=== PATIENT | male | born 1950 | race Caucasian/White ===

== ENCOUNTER 2016-11-09 00:11 | Emergency (ER) | payer MEDICARE, BC ==
--- NOTE | 2016-11-09 00:41 | EDM.PDOC ---
ED HPI GENERAL MEDICAL PROBLEM - General Chief Complaint: Cardiovascular Problem Stated Complaint: high blood pressure Time Seen by Provider: 11/09/16 00:31 - History of Present Illness INITIAL COMMENTS - FREE TEXT/NARRATIVE: 66-year-old male presents emergency room with elevated blood pressure. He has significant history of recent CABG on 10 October. Postoperatively his routine medications were decreased his Cozaar was decreased from 100 mg a day to 50 mg a day and his metoprolol was decreased from 25 mg twice a day to 12.5 mg twice a day. Patient spends his stack in [place]. This is where he had his bypass surgery done. After coming back up a few days ago he noticed his blood pressure elevating to more alarming levels. On his own he increased his metoprolol back to 25 mg twice a day. This evening his blood pressure was noted to be 183/113. The patient does have some chest wall discomfort this is no worse than normal he does not have any associated shortness of breath he has some lower extremity edema but this is getting better over time. His postoperative course was complicated with the development of atrial fibrillation he was treated with 16 days of amiodarone. He was not anticoagulated. He is taking Plavix and aspirin. The patient has been much more active over the last week or so. He has a 6 pound lifting restriction and since he's been back to his [place] home he' s probably been lifting more than he should. Past medical history significant for hypertension atherosclerotic cardiovascular disease and hyperlipidemia. Chest Pain Score (Numeric/FACES): 7 - Related Data Allergies Allergy/AdvReac Type Severity Reaction Status Date / Time No Known Allergies Allergy Verified 11/09/16 00:17 Home Meds: Home Meds Ascorbate Calcium [Vitamin C] 500 mg PO DAILY 11/09/16 [History] Aspirin 81 mg PO DAILY 11/09/16 [History] Clopidogrel [Plavix] 75 mg PO DAILY 11/09/16 [History] Losartan/Hydrochlorothiazide [Losartan-HCTZ 50-12.5 MG] 1 tab PO DAILY 11/09/16 [History] Metoprolol Tartrate 25 mg PO BID 11/09/16 [History] Pravastatin Sodium 80 mg PO DAILY 11/09/16 [History] Tamsulosin [Flomax] 0.4 mg PO DAILY 11/09/16 [History] Past Medical History HEENT History: Reports: Impaired Vision Other HEENT History: Wears glasses Cardiovascular History: Reports: Afib, Bypass, High Cholesterol, Hypertension, [place] Respiratory History: Reports: Sleep Apnea Genitourinary History: Reports: Renal Calculus Neurological History: Reports: TIA Endocrine/Metabolic History: Reports: Diabetes, Type II Oncologic (Cancer) History: Reports: Prostate - Past Surgical History GI Surgical History: Reports: Cholecystectomy Social & Family History - Tobacco Use Smoking Status *Q: Never Smoker - Recreational Drug Use Recreational Drug Use: No ED ROS GENERAL - Review of Systems Review Of Systems: See Below Constitutional: Reports: No Symptoms HEENT: Reports: No Symptoms Respiratory: Reports: No Symptoms Cardiovascular: Reports: No Symptoms Endocrine: Reports: No Symptoms GI/Abdominal: Reports: No Symptoms : Reports: No Symptoms Neurological: Reports: No Symptoms Psychiatric: Reports: No Symptoms ED EXAM, GENERAL - Physical Exam Exam: See Below Exam Limited By: No Limitations General Appearance: Alert, No Apparent Distress Respiratory/Chest: No Respiratory Distress, Lungs Clear, Normal Breath Sounds Cardiovascular: Regular Rate, Rhythm, No Edema, No Murmur GI/Abdominal: Normal Bowel Sounds, Soft, Non-Tender Back Exam: Normal Inspection. No: CVA Tenderness (L), CVA Tenderness (R) Extremities: Other (Mild pitting edema right worse than left) EKG INTERPRETATION EKG Date: 11/09/16 Rhythm: NSR [place]: normal P-wave: present QRS: other (Borderline intraventricular conduction delay) ST-T: normal QT: normal Comparison: NA - no prior EKG EKG Interpretation Comments: Order lead EKG Course - Vital Signs Last Recorded V/S: Last Vital Signs Temp 36.4 C 11/09/16 00:17 Pulse 87 11/09/16 00:17 Resp 18 11/09/16 00:17 BP 159/108 H 11/09/16 01:09 Pulse Ox 98 11/09/16 00:17 - Orders/Labs/Meds Orders: Active Orders 24 hr Category Date Time Status EKG Documentation Completion [RC] STAT Care 11/09/16 00:53 Active Chest 1V Frontal [CR] Stat Exams 11/09/16 00:51 Taken CBC WITH MANUAL DIFF [HEME] Stat Lab 11/09/16 01:02 Results COMPREHENSIVE METABOLIC PN,CMP [CHEM] Stat Lab 11/09/16 01:02 Received INR,PT,PROTHROMBIN TIME [COAG] Stat Lab 11/09/16 01:02 Received PTT,PARTIAL THROMBOPLSTIN TIME [COAG] Stat Lab 11/09/16 01:02 Received TROPONIN I [CHEM] Stat Lab 11/09/16 01:02 Received Labs: Laboratory Tests 11/09/16 Range/Units 01:02 WBC 4.98 (4.23-9.07) K/mm3 RBC 4.06 L (4.63-6.08) M/mm3 Hgb 12.3 L (13.7-17.5) gm/L Hct 38.3 L (40.1-51.0) % MCV 94.3 H (79.0-92.2) fl MCH 30.3 (25.7-32.2) pg MCHC 32.1 L (32.2-35.5) g/dl RDW Std Deviation 52.8 H (35.1-43.9) fL Plt Count 169 (163-337) K/mm3 MPV 9.9 (9.4-12.3) fl Meds: Medications Discontinued Medications Generic Name Dose Route Start Last Admin Trade Name Olga PRN Reason Stop Dose Admin Losartan Potassium 50 mg 11/09/16 00:58 11/09/16 01:09 Cozaar PO 11/09/16 00:59 50 mg ONETIME ONE Administration - Re-Assessments/Exams Free Text/Narrative Re-Assessment/Exam: 11/09/16 01:31 Labs pending EKG shows no ischemia. Chest x-ray rotated no acute cardiopulmonary changes he's somewhat rotated but nonetheless probably has some degree of cardiomegaly 11/09/16 02:06 Labs nondiagnostic his creatinine is up a little bit he is mildly anemic which would be expected given his recent surgery. The patient was given 50 mg of losartan here our strategy for his blood pressures can be to increase his losartan back to what was his usual daily dose 100 mg daily however working he continue 50 mg twice daily. Departure - Departure Time of Disposition: 02:07 Disposition: Home, Self-Care 01 Clinical Impression: Hypertension Forms: ED Department Discharge Additional Instructions: Return to the emergency room with any questions or problems. Followup with Dr. Carrasco in one week for blood pressure check. Proceed with cardiac rehabilitation as scheduled. Continue your current medications as before however we will increase her losartan to 50 mg twice daily. - My Orders Last 24 Hours: My Active Orders 11/09/16 00:51 Chest 1V Frontal [CR] Stat 11/09/16 00:53 EKG Documentation Completion [RC] STAT 11/09/16 01:02 CBC WITH MANUAL DIFF [HEME] Stat COMPREHENSIVE METABOLIC PN,CMP [CHEM] Stat INR,PT,PROTHROMBIN TIME [COAG] Stat PTT,PARTIAL THROMBOPLSTIN TIME [COAG] Stat TROPONIN I [CHEM] Stat - Assessment/Plan Last 24 Hours: My Active Orders 11/09/16 00:51 Chest 1V Frontal [CR] Stat 11/09/16 00:53 EKG Documentation Completion [RC] STAT 11/09/16 01:02 CBC WITH MANUAL DIFF [HEME] Stat COMPREHENSIVE METABOLIC PN,CMP [CHEM] Stat INR,PT,PROTHROMBIN TIME [COAG] Stat PTT,PARTIAL THROMBOPLSTIN TIME [COAG] Stat TROPONIN I [CHEM] Stat
[2016-11-09] MEDS ORDERED: Losartan 25 MG Tab PO ONE (00:58)
[2016-11-09 01:10] VITALS: BP 159/108
--- NOTE | 2016-11-09 06:51 | CR ---
Chest: Portable view of the chest was obtained. Comparison: Previous chest x-ray of 05/30/12. Heart is mildly enlarged. Tortuous thoracic aorta is seen. Sternotomy wires are seen which are an interval change from prior exam. Lungs are clear. Bony structures are grossly intact. Impression: 1. Mild cardiomegaly and interval sternotomy from prior exam. 2. Nothing acute is otherwise seen on portable chest x-ray. Diagnostic code #2
== END 2016-11-09 02:17 | disposition home or self-care (01) ==
LOC: JD.ED 00:11
DX: I10 Essential (primary) hypertension (principal); I25.2 Old myocardial infarction; E78.00 Pure hypercholesterolemia, unspecified; E11.9 Type 2 diabetes mellitus without complications; Z86.73 Personal history of transient ischemic attack (TIA), and cerebral infarction without residual deficits; Z85.46 Personal history of malignant neoplasm of prostate; Z79.82 Long term (current) use of aspirin; Z79.02 Long term (current) use of antithrombotics/antiplatelets; Z79.899 Other long term (current) drug therapy; Z90.49 Acquired absence of other specified parts of digestive tract
CPT/HCPCS: 36415; 71010; 80053; 84484; 85025; 85610; 85730; 93005; 99284; A9270; 99283

== ENCOUNTER 2019-10-11 09:58 | Emergency (ER) | payer MEDICARE, BC ==
[2019-10-11 10:10] VITALS: BP 154/90; PULSE 74
[2019-10-11] MEDS ORDERED: Sodium Chloride 0.9% 10 ML Syringe FLUSH PRN (10:15)
[2019-10-11] MEDS ORDERED: cefTRIAXone 2 GM in Sodium Chloride 0.9% 100 ML IV ONE (10:16)
--- NOTE | 2019-10-11 11:20 | EDM.PDOC ---
ED HPI GENERAL MEDICAL PROBLEM - General Chief Complaint: Skin Complaint Stated Complaint: TICK BITE GETTING WORSE Time Seen by Provider: 10/11/19 10:08 Source of Information: Reports: Patient History Limitations: Reports: No Limitations - History of Present Illness INITIAL COMMENTS - FREE TEXT/NARRATIVE: The patient presents with left sided abdominal infection. He had a tick on him on Monday and he removed the tick and then he had redness. He went to the walk in clinic yesterday and was put on doxycycline. He took 3 doses but the redness has extended past the margins that the nurse practitioner marked yesterday. He has no fever, chills, cough, congestion, runny nose, chest pain, or shortness of breath. Onset: Gradual Duration: Day(s): Location: Reports: Abdomen Quality: Reports: Sharp Severity: Mild Improves with: Reports: None Worsens with: Reports: None Associated Symptoms: Reports: No Other Symptoms - Related Data Allergies Allergy/AdvReac Type Severity Reaction Status Date / Time No Known Allergies Allergy Verified 10/11/19 10:10 Home Meds: Home Meds Ascorbate Calcium [Vitamin C] 500 mg PO DAILY 11/09/16 [History] Aspirin 81 mg PO DAILY 11/09/16 [History] Losartan/Hydrochlorothiazide [Losartan-HCTZ 50-12.5 MG] 1 tab PO DAILY 11/09/16 [History] Metoprolol Tartrate 25 mg PO BID 11/09/16 [History] Pravastatin Sodium 80 mg PO DAILY 11/09/16 [History] Tamsulosin [Flomax] 0.4 mg PO DAILY 11/09/16 [History] Doxycycline [Doxycycline Hyclate] 100 mg PO BID 10/11/19 [History] Past Medical History HEENT History: Reports: Impaired Vision Other HEENT History: Wears glasses Cardiovascular History: Reports: Afib, Bypass, High Cholesterol, Hypertension, [place] Respiratory History: Reports: Sleep Apnea Genitourinary History: Reports: Renal Calculus Neurological History: Reports: TIA Endocrine/Metabolic History: Reports: Diabetes, Type II Oncologic (Cancer) History: Reports: Prostate - Past Surgical History GI Surgical History: Reports: Cholecystectomy Social & Family History - Tobacco Use Smoking Status *Q: Never Smoker - Recreational Drug Use Recreational Drug Use: No ED ROS GENERAL - Review of Systems Review Of Systems: See Below Constitutional: Reports: No Symptoms HEENT: Reports: No Symptoms Respiratory: Reports: No Symptoms Cardiovascular: Reports: No Symptoms Endocrine: Reports: No Symptoms GI/Abdominal: Reports: Other (Redness and swelling to the left abdomen) : Reports: No Symptoms Musculoskeletal: Reports: No Symptoms Neurological: Reports: No Symptoms ED EXAM, SKIN/RASH Exam: See Below Exam Limited By: No Limitations General Appearance: Alert, No Apparent Distress Ears: Normal External Exam Nose: Normal Inspection Head: Atraumatic, Normocephalic Neck: Normal Inspection Respiratory/Chest: No Respiratory Distress GI/Abdominal: Soft, Other (Erythema and edema to the left lower abdomen. No drainage is noted.) Course - Vital Signs Last Recorded V/S: Last Vital Signs Temp 97.9 F 10/11/19 10:07 Pulse 74 10/11/19 10:07 Resp 15 10/11/19 10:07 BP 154/90 H 10/11/19 10:07 Pulse Ox 95 10/11/19 10:07 - Orders/Labs/Meds Orders: Active Orders 24 hr Category Date Time Status Cardiac Monitoring [RC] . DIRECTED Care 10/11/19 10:15 Active Peripheral IV Care [RC] . DIRECTED Care 10/11/19 10:15 Active CULTURE BLOOD [BC] Stat Lab 10/11/19 10:35 Received CULTURE BLOOD [BC] Stat Lab 10/11/19 10:45 Received Sodium Chloride 0.9% [Saline Flush] Med 10/11/19 10:15 Active 10 ml FLUSH ASDIRECTED PRN Blood Culture x2 Reflex Set [OM.PC] Stat Oth 10/11/19 10:16 Ordered Peripheral IV Insertion Adult [OM.PC] Stat Oth 10/11/19 10:15 Ordered Medication Orders Sodium Chloride (Saline Flush) 10 ml FLUSH ASDIRECTED PRN PRN Reason: Keep Vein Open Last Admin: 10/11/19 10:50 Dose: 10 ml Labs: Laboratory Tests 10/11/19 10/11/19 Range/Units 10:35 10:35 WBC 5.48 (4.23-9.07) K/mm3 RBC 5.29 (4.63-6.08) M/mm3 Hgb 16.4 D (13.7-17.5) gm/dl Hct 49.5 (40.1-51.0) % MCV 93.6 H (79.0-92.2) fl MCH 31.0 (25.7-32.2) pg MCHC 33.1 (32.2-35.5) g/dl RDW Std Deviation 48.5 H (35.1-43.9) fL Plt Count 166 (163-337) K/mm3 MPV 10.5 (9.4-12.3) fl Neut % (Auto) 64.4 (34.0-67.9) % Lymph % (Auto) 19.3 L (21.8-53.1) % [place] % (Auto) 9.7 (5.3-12.2) % Eos % (Auto) 5.7 (0.8-7.0) Baso % (Auto) 0.5 (0.1-1.2) % Neut # (Auto) 3.53 (1.78-5.38) K/mm3 Lymph # (Auto) 1.06 L (1.32-3.57) K/mm3 [place] # (Auto) 0.53 (0.30-0.82) K/mm3 Eos # (Auto) 0.31 (0.04-0.54) K/mm3 Baso # (Auto) 0.03 (0.01-0.08) K/mm3 Sodium 140 (136-145) mEq/L Potassium 3.9 (3.5-5.1) mEq/L Chloride 104 (98-107) mEq/L Carbon Dioxide 27 (21-32) mEq/L Anion Gap 12.9 (5-15) BUN 20 H (7-18) mg/dL Creatinine 1.2 (0.7-1.3) mg/dL Est Cr Clr Drug Dosing 61.01 mL/min Estimated GFR (MDRD) 60 (>60) mL/min BUN/Creatinine Ratio 16.7 (14-18) Glucose 110 (80-115) mg/dL Calcium 8.8 (8.5-10.1) mg/dL Total Bilirubin 0.8 (0.2-1.0) mg/dL AST 32 (15-37) U/L ALT 70 H (16-63) U/L Alkaline Phosphatase 64 (46-116) U/L C-Reactive Protein < 0.2 (<1.0) mg/dL Total Protein 6.8 (6.4-8.2) g/dl Albumin 3.8 (3.4-5.0) g/dl Globulin 3.0 gm/dL Albumin/Globulin Ratio 1.3 (1-2) Meds: Medications Generic Name Dose Route Start Last Admin Trade Name Freq PRN Reason Stop Dose Admin Sodium Chloride 10 ml 10/11/19 10:15 10/11/19 10:50 Saline Flush FLUSH 10 ml ASDIRECTED PRN Administration Keep Vein Open Discontinued Medications Generic Name Dose Route Start Last Admin Trade Name Freq PRN Reason Stop Dose Admin Ceftriaxone Sodium 2 gm/ 100 mls @ 200 mls/hr 10/11/19 10:16 10/11/19 10:49 Sodium Chloride IV 10/11/19 10:45 200 mls/hr ONETIME ONE Administration - Re-Assessments/Exams Free Text/Narrative Re-Assessment/Exam: 10/11/19 11:20 I ordered an IV saline lock, rocephin 2 grams IV, labs and blood cultures. His CBC looks good. 10/11/19 11:42 His ALT was a little elevated at 70. His CRP is negative. I will have him come back tomorrow for a shot of rocephin. Departure - Departure Time of Disposition: 11:45 Disposition: Home, Self-Care 01 Condition: Good Clinical Impression: Cellulitis of abdominal wall - Discharge Information *PRESCRIPTION DRUG MONITORING PROGRAM REVIEWED*: Not Applicable *COPY OF PRESCRIPTION DRUG MONITORING REPORT IN PATIENT BILL: Not Applicable Referrals: Bladimir Lozada MD [Primary Care Provider] - 1 Week Forms: ED Department Discharge Additional Instructions: Put warm compresses on the affected area 3 times per day. Take the doxycycline 2 times per day as prescribed. Please return tomorrow for a shot of antibiotic. Sepsis Event Note - Evaluation Sepsis Screening Result: No Definite Risk - Focused Exam Vital Signs: Vital Signs Temp Pulse Resp BP Pulse Ox 10/11/19 10:07 97.9 F 74 15 154/90 H 95 Date Exam was Performed: 10/11/19 Time Exam was Performed: 11:42 - My Orders Last 24 Hours: My Active Orders 10/11/19 10:15 Cardiac Monitoring [RC] . DIRECTED Peripheral IV Care [RC] . DIRECTED Sodium Chloride 0.9% [Saline Flush] 10 ml FLUSH ASDIRECTED PRN Peripheral IV Insertion Adult [OM.PC] Stat 10/11/19 10:16 Blood Culture x2 Reflex Set [OM.PC] Stat 10/11/19 10:35 CULTURE BLOOD [BC] Stat 10/11/19 10:45 CULTURE BLOOD [BC] Stat - Assessment/Plan Last 24 Hours: My Active Orders 10/11/19 10:15 Cardiac Monitoring [RC] . DIRECTED Peripheral IV Care [RC] . DIRECTED Sodium Chloride 0.9% [Saline Flush] 10 ml FLUSH ASDIRECTED PRN Peripheral IV Insertion Adult [OM.PC] Stat 10/11/19 10:16 Blood Culture x2 Reflex Set [OM.PC] Stat 10/11/19 10:35 CULTURE BLOOD [BC] Stat 10/11/19 10:45 CULTURE BLOOD [BC] Stat
== END 2019-10-11 11:54 | disposition home or self-care (01) ==
LOC: JD.ED 09:58
DX: L03.311 Cellulitis of abdominal wall (principal); I48.91 Unspecified atrial fibrillation; E78.00 Pure hypercholesterolemia, unspecified; I10 Essential (primary) hypertension; I25.2 Old myocardial infarction; E11.9 Type 2 diabetes mellitus without complications; Z87.442 Personal history of urinary calculi; Z85.46 Personal history of malignant neoplasm of prostate; Z79.899 Other long term (current) drug therapy; Z79.82 Long term (current) use of aspirin; Z86.73 Personal history of transient ischemic attack (TIA), and cerebral infarction without residual deficits
CPT/HCPCS: 36415; 80053; 85025; 86140; 87040; 96365; 99283; J0696; J7050

== ENCOUNTER 2020-06-24 11:27 | Emergency (ER) | payer MEDICARE, BC ==
[2020-06-24 11:52] VITALS: BP 206/105; PULSE 82
--- NOTE | 2020-06-24 12:19 | EDM.PDOC ---
ED HPI GENERAL MEDICAL PROBLEM - General Chief Complaint: Cardiovascular Problem Stated Complaint: HIGH BP Time Seen by Provider: 06/24/20 11:34 Source of Information: Reports: Patient History Limitations: Reports: No Limitations - History of Present Illness INITIAL COMMENTS - FREE TEXT/NARRATIVE: 70-year-old male presents to the emergency department complaints of high blood pressure. Patient states he has had a headache for 3 weeks. He however reports that he stopped taking his hydrochlorothiazide about a month ago because he was tired of having to void all the time. Patient also notes that his ankles have become more swollen and he has noted a 5 pound weight gain. Denies any chest pain or shortness of breath associated with this. He states he took an extra dose of his metoprolol 25mg at 1030 this morning to lower his blood pressure. Patient's blood pressure at time of assessment is160/95, HR 55. Pt also states that he has not started taking his metformin that was prescribed to him on May.19. Onset: Gradual Upper Headache Pain Score (Numeric/FACES): 7 - Related Data Allergies Allergy/AdvReac Type Severity Reaction Status Date / Time No Known Allergies Allergy Verified 06/24/20 11:37 Home Meds: Home Meds Ascorbate Calcium [Vitamin C] 500 mg PO DAILY 11/09/16 [History] Aspirin 81 mg PO DAILY 11/09/16 [History] Metoprolol Tartrate 25 mg PO BID 11/09/16 [History] Cholecalciferol (Vitamin D3) [Vitamin D3] 5,000 intnl unit PO DAILY 06/24/20 [History] Ezetimibe [Zetia] 10 mg PO BEDTIME 06/24/20 [History] Olmesartan Medoxomil 40 mg PO DAILY 06/24/20 [History] amLODIPine [Norvasc] 5 mg PO DAILY 06/24/20 [History] hydroCHLOROthiazide [Hydrochlorothiazide] 12.5 mg PO DAILY 06/24/20 [History] metFORMIN [Glucophage] 500 mg PO DAILY 06/24/20 [History] Past Medical History HEENT History: Reports: Impaired Vision Other HEENT History: Wears glasses Cardiovascular History: Reports: Afib, Bypass, High Cholesterol, Hypertension, [place] Respiratory History: Reports: Sleep Apnea Other Respiratory History: wears C-PAP. Genitourinary History: Reports: BPH, Pyelonephritis, Renal Calculus Neurological History: Reports: TIA Endocrine/Metabolic History: Reports: Diabetes, Type II Oncologic (Cancer) History: Reports: Prostate Other Oncologic History: SEEDS implants - Infectious Disease History Infectious Disease History: Reports: Chicken Pox, Measles, Mumps - Past Surgical History Cardiovascular Surgical History: Reports: Coronary Artery Bypass, Other (See Below) Other Cardiovascular Surgeries/Procedures: 4 vessel bypass. GI Surgical History: Reports: Cholecystectomy, Colonoscopy Social & Family History - Tobacco Use Tobacco Use Status *Q: Never Tobacco User Second Hand Smoke Exposure: No - Caffeine Use Caffeine Use: Reports: Soda - Recreational Drug Use Recreational Drug Use: No ED ROS GENERAL - Review of Systems Review Of Systems: See Below Constitutional: Reports: Weight Gain (5 pounds in the last month). Denies: Fever, Chills, Diaphoresis HEENT: Reports: No Symptoms Respiratory: Reports: No Symptoms. Denies: Shortness of Breath, Wheezing, Cough Cardiovascular: Reports: Blood Pressure Problem (Hypertension), Edema (Bilateral lower extremities). Denies: Chest Pain, Dyspnea on Exertion, Lightheadedness, Orthopnea, Palpitations, Syncope Endocrine: Reports: No Symptoms GI/Abdominal: Reports: No Symptoms : Reports: No Symptoms Musculoskeletal: Reports: No Symptoms Skin: Reports: No Symptoms Neurological: Reports: No Symptoms Psychiatric: Reports: No Symptoms Hematologic/Lymphatic: Reports: No Symptoms Immunologic: Reports: No Symptoms ED EXAM, GENERAL - Physical Exam Exam: See Below Exam Limited By: No Limitations General Appearance: Alert, WD/WN, No Apparent Distress Eye Exam: Bilateral Eye: PERRL Ears: Hearing Grossly Normal Nose: Normal Inspection Throat/Mouth: Normal Inspection, Normal Voice, No Airway Compromise Head: Atraumatic, Normocephalic Neck: Normal Inspection, Supple, Non-Tender, Full Range of Motion Respiratory/Chest: No Respiratory Distress, Lungs Clear, Normal Breath Sounds, No Accessory Muscle Use, Chest Non-Tender Cardiovascular: Normal Peripheral Pulses, Regular Rate, Rhythm, Systolic Murmur (Grade 2). No: No Edema (3+ pitting edema to the bilateral lower extremities from mid rivas down) Peripheral Pulses: 2+: Radial (L), Radial (R) GI/Abdominal: Normal Bowel Sounds, Soft, Non-Tender, No Distention (Male) Exam: Deferred Rectal (Males) Exam: Deferred Back Exam: Normal Inspection, Full Range of Motion Extremities: Normal Inspection, Normal Range of Motion, Non-Tender, Normal Capillary Refill, Pedal Edema (3+ pitting to the bilateral lower extremities from mid rivas down) Neurological: Alert, Oriented, Normal Cognition Psychiatric: Normal Affect, Normal Mood Skin Exam: Warm, Dry, Intact, Normal Color, No Rash Lymphatic: No Adenopathy #1 Interpretation EKG Date: 06/24/20 Time: 12:25 Rhythm: NSR Rate (Beats/Min): 58 [place]: Normal P-Wave: Present QRS: Normal ST-T: Normal QT: Normal Comparison: NA - No Prior EKG Course - Vital Signs Text/Narrative:: 70-year-old male presents to the emergency department with complaints of high blood pressure and a headache x3 weeks. Patient states he took his blood pressure this morning and it was elevated and then spoke with his daughter and she told him to take an extra dose of his metoprolol 25 mg tab. Patient states he stopped taking his hydrochlorothiazide about a month ago as he was tired of having to run to the bathroom all the time. He notes that he has had about a 5 pound weight gain, increased swelling in his bilateral lower extremities and a headache. He denies any orthopnea, chest pain, shortness of breath, or palpitations. Upon assessment patient's lung sounds are clear bilaterally, he does have a grade 2 systolic murmur noted, abdomen is soft nontender, and he does have 3+ pitting edema to his bilateral lower extremities. At the time of my assessment the patient's blood pressure has now come down to the 160s over 90s and his heart rate is in the 50s so I will not treat his hypertension. I have ordered a portable chest x-ray, EKG, CBC, CMP, troponin, BNP. I reinforced to the patient the need for him to be taking his hydrochlorothiazide daily and the need for him to be taking his Metformin. Last Recorded V/S: Last Vital Signs Temp 98.2 F 06/24/20 11:30 Pulse 82 06/24/20 11:30 Resp 20 06/24/20 11:30 BP 206/105 H 06/24/20 11:30 Pulse Ox 95 06/24/20 11:30 - Orders/Labs/Meds Orders: Active Orders 24 hr Category Date Time Status EKG Documentation Completion [RC] STAT Care 06/24/20 12:03 Active Labs: Laboratory Tests 06/24/20 06/24/20 06/24/20 Range/Units 12:18 12:18 12:18 WBC 5.24 (4.23-9.07) K/mm3 RBC 5.59 (4.63-6.08) M/mm3 Hgb 16.7 (13.7-17.5) gm/dl Hct 49.9 (40.1-51.0) % MCV 89.3 (79.0-92.2) fl MCH 29.9 (25.7-32.2) pg MCHC 33.5 (32.2-35.5) g/dl RDW Std Deviation 44.6 H (35.1-43.9) fL Plt Count 144 L (163-337) K/mm3 MPV 10.9 (9.4-12.3) fl Neut % (Auto) 73.1 H (34.0-67.9) % Lymph % (Auto) 15.6 L (21.8-53.1) % Bland % (Auto) 8.4 (5.3-12.2) % Eos % (Auto) 2.1 (0.8-7.0) Baso % (Auto) 0.4 (0.1-1.2) % Neut # (Auto) 3.83 (1.78-5.38) K/mm3 Lymph # (Auto) 0.82 L (1.32-3.57) K/mm3 Bland # (Auto) 0.44 (0.30-0.82) K/mm3 Eos # (Auto) 0.11 (0.04-0.54) K/mm3 Baso # (Auto) 0.02 (0.01-0.08) K/mm3 Sodium 145 (136-145) mEq/L Potassium 4.6 (3.5-5.1) mEq/L Chloride 105 (98-107) mEq/L Carbon Dioxide 31 (21-32) mEq/L Anion Gap 13.6 (5-15) BUN 15 (7-18) mg/dL Creatinine 1.3 (0.7-1.3) mg/dL Est Cr Clr Drug Dosing 55.51 mL/min Estimated GFR (MDRD) 54 (>60) mL/min BUN/Creatinine Ratio 11.5 L (14-18) Glucose 142 H (83-115) mg/dL Calcium 9.0 (8.5-10.1) mg/dL Magnesium 2.0 (1.8-2.4) mg/dl Total Bilirubin 0.8 (0.2-1.0) mg/dL AST 40 H (15-37) U/L ALT 82 H (16-63) U/L Alkaline Phosphatase 73 (46-116) U/L Troponin I < 0.017 (0.00-0.056) ng/mL NT-Pro-B Natriuret Pep 115 (0-125) pg/mL Total Protein 6.7 (6.4-8.2) g/dl Albumin 3.7 (3.4-5.0) g/dl Globulin 3.0 gm/dL Albumin/Globulin Ratio 1.2 (1-2) - Re-Assessments/Exams Free Text/Narrative Re-Assessment/Exam: 06/24/20 13:57 CBC is essentially unremarkable, CMP reveals sodium 145, potassium 4.6, BUN 15, creatinine 1.3, GFR 54, glucose 142, AST 40, ALT 82, troponin less than 0.017, proBNP 115. Patient has ruled out of having any cardiac events related to the hypertension. He he now states that just before arrival to the emergency department he took his daily dose of hydrochlorothiazide and he has voided 3 times since being in the emergency department and feels better. I am going to discharge him to home with recommendations that he restart his hydrochlorothiazide as previously prescribed and start taking his Metformin as his glucose was elevated in the emergency department. I did discuss this with the patient and his and they are both agreeable to this. Departure - Departure Time of Disposition: 13:45 Disposition: Home, Self-Care 01 Condition: Good Clinical Impression: Noncompliance with medication regimen Instructions: Metformin extended-release tablets, Hypertension, Adult, [id number], Heart Failure, Diagnosis, [id number], Edema, [id number] Referrals: Veda Valdez PA-C [Primary Care Provider] - Forms: ED Department Discharge Additional Instructions: You were seen in the emergency department with complaints of high blood pressure and a headache. It was found that this was due to you not taking your hydrochlorothiazide medication. Your blood pressure did come down while in the emergency department as you stated you had taken an extra dose of your metoprolol prior to arriving the emergency department. Full cardiac work-up was unremarkable. You would need to take your hydrochlorothiazide as prescribed. You also need to be taking your Metformin as prescribed as your blood sugar was elevated in the emergency department. Follow-up with your primary care physician with any further issues. Should your condition worsen or change please return to the emergency department Sepsis Event Note (ED) - Evaluation Sepsis Screening Result: No Definite Risk - Focused Exam Vital Signs: Vital Signs Temp Pulse Resp BP Pulse Ox 06/24/20 11:30 98.2 F 82 20 206/105 H 95 - My Orders Last 24 Hours: My Active Orders 06/24/20 12:03 EKG Documentation Completion [RC] STAT - Assessment/Plan Last 24 Hours: My Active Orders 06/24/20 12:03 EKG Documentation Completion [RC] STAT
--- NOTE | 2020-06-24 12:43 | CR ---
Chest: Portable view of the chest was obtained. Comparison: Prior chest x-ray of 09/25/19. Heart size is normal. Tortuous thoracic aorta is seen. Prior sternotomy is seen. Lungs are clear with no acute parenchymal change. Osseous structures show nothing acute. Impression: 1. Nothing acute is seen on portable chest x-ray. Diagnostic code #1
== END 2020-06-24 14:05 | disposition home or self-care (01) ==
LOC: JD.ED 11:27
DX: I10 Essential (primary) hypertension (principal); I48.91 Unspecified atrial fibrillation; I25.2 Old myocardial infarction; E11.9 Type 2 diabetes mellitus without complications; Z79.84 Long term (current) use of oral hypoglycemic drugs; Z79.82 Long term (current) use of aspirin; Z79.899 Other long term (current) drug therapy; Z86.73 Personal history of transient ischemic attack (TIA), and cerebral infarction without residual deficits; Z95.1 Presence of aortocoronary bypass graft; Z91.14 Patient's other noncompliance with medication regimen
CPT/HCPCS: 36415; 71045; 71045-26; 80053; 83735; 83880; 84484; 85025; 93005; 93010; 99283; 99284-25

== ENCOUNTER 2021-03-19 04:21 | Emergency (ER) | payer MEDICARE, BC ==
[2021-03-19 04:35] VITALS: BP 145/75; PULSE 80
--- NOTE | 2021-03-19 04:42 | EDM.PDOC ---
ED HPI GENERAL MEDICAL PROBLEM - General Chief Complaint: Genitourinary Problem Stated Complaint: UTI Time Seen by Provider: 03/19/21 04:42 - History of Present Illness INITIAL COMMENTS - FREE TEXT/NARRATIVE: Patient arrived to ED by private vehicle He is accompanied by his Onset of symptoms was 1 week ago Describes urinary frequency and burning with urination Past 2 days symptoms have gotten worse Endorses presence of blood in urine States that urination "stops" while he is voiding and feels like his "bladder is going to burst" Denies fever, nausea, vomiting, diarrhea Has prior history of prostate cancer Also has history of kidney stones, previously manifested with flank pain Bladder Pain Score (Numeric/FACES): 5 - Related Data Allergies Allergy/AdvReac Type Severity Reaction Status Date / Time No Known Allergies Allergy Verified 03/19/21 04:35 Home Meds: Home Meds Ascorbate Calcium [Vitamin C] 500 mg PO DAILY 11/09/16 [History] Aspirin 81 mg PO DAILY 11/09/16 [History] Metoprolol Tartrate 25 mg PO BID 11/09/16 [History] Cholecalciferol (Vitamin D3) [Vitamin D3] 5,000 intnl unit PO DAILY 06/24/20 [History] Olmesartan Medoxomil 40 mg PO DAILY 06/24/20 [History] amLODIPine [Norvasc] 5 mg PO DAILY 06/24/20 [History] hydroCHLOROthiazide [Hydrochlorothiazide] 12.5 mg PO DAILY 06/24/20 [History] Pravastatin [Pravachol] 40 mg PO DAILY 03/19/21 [History] cephALEXin [Cephalexin] 500 mg PO Q12H #15 capsule 03/19/21 [Rx] Past Medical History HEENT History: Reports: Impaired Vision Other HEENT History: Wears glasses Cardiovascular History: Reports: Afib, Bypass, High Cholesterol, Hypertension, CT Respiratory History: Reports: Sleep Apnea Other Respiratory History: wears C-PAP. Genitourinary History: Reports: BPH, Pyelonephritis, Renal Calculus Neurological History: Reports: TIA Endocrine/Metabolic History: Reports: Diabetes, Type II Oncologic (Cancer) History: Reports: Prostate Other Oncologic History: SEEDS implants - Infectious Disease History Infectious Disease History: Reports: Chicken Pox, Measles, Mumps - Past Surgical History Cardiovascular Surgical History: Reports: Coronary Artery Bypass, Other (See Below) Other Cardiovascular Surgeries/Procedures: 4 vessel bypass. GI Surgical History: Reports: Cholecystectomy, Colonoscopy Social & Family History - Caffeine Use Caffeine Use: Reports: Soda ED ROS GENERAL - Review of Systems Review Of Systems: See Below Free Text/Narrative/Comment: Constitutional - no fever Eyes - no eye pain; no visual disturbance ENT - no rhinorrhea; no congestion; no epistaxis Cardiovascular - no chest pain Respiratory - no shortness of breath; no cough Gastrointestinal - lower abdominal pain; no nausea; no vomiting; no diarrhea Genitourinary - dysuria; hematuria; urinary frequency Musculoskeletal - no neck pain; no back pain; no extremity injury Neurological - no headache; no speech disturbance; no weakness ED EXAM, GENERAL - Physical Exam Exam: See Below Free Text/Narrative:: Constitutional - awake; alert; no acute distress Head - no facial swelling or weakness Eyes - extra ocular motion intact; conjunctiva normal ENT - no nasal deformity; no epistaxis; normal phonation Neck - no swelling Respiratory - normal respiratory effort; no crackles or wheezing; no stridor Cardiovascular - regular rhythm; normal rate; S1; S2; grade 2/6 systolic murmur GI/Abdomen - normal bowel sounds; soft; mild, lower abdominal tenderness; no rebound; no guarding; no mass Musculoskeletal - grossly normal strength and motion; no swelling or deformity Skin - warm; dry Neurologic - normal speech; no weakness Psychiatric - normal mood and affect; memory and attention normal Course - Vital Signs Text/Narrative:: . Considered etiologies included: Urinary frequency, dysuria, hematuria, urinary retention, kidney stone Symptoms and examination were discussed Investigations were initiated Bladder scan after voiding for urine specimen showed no significant urinary retention Results of urinalysis showed predominantly RBCs, consistent with hemorrhagic cystitis Urine culture was ordered Consideration was discussed for abdominal CT imaging Patient confirmed no pain except with urination, and no flank pain CT imaging was deferred Antibiotic therapy for presumed UTI was initiated with oral cephalexin Ciprofloxacin was avoided due to patient age Trimethoprim/sulfamethoxazole was avoided due risk of hyperkalemia with ARB medication Primary care follow-up was advised Patient was felt to be stable for outpatient follow-up Return precautions were provided Last Recorded V/S: Last Vital Signs Temp 36.9 C 03/19/21 04:32 Pulse 80 03/19/21 04:32 Resp 16 03/19/21 04:32 BP 145/75 H 03/19/21 04:32 Pulse Ox 94 L 10/08/21 04:32 - Orders/Labs/Meds Orders: Active Orders 24 hr Category Date Time Status CULTURE URINE [MREF] Stat Lab 03/19/21 04:38 Received cephALEXin [Keflex] Med 03/19/21 06:24 Once 500 mg PO ONETIME ONE Labs: Laboratory Tests 03/19/21 Range/Units 04:38 Urine Color Brown H (Yellow) Urine Appearance Cloudy H (Clear) Urine pH 5.5 (5.0-8.0) Ur Specific [place] 1.025 (1.005-1.030) Urine Protein 3+ H (Negative) Urine Glucose (UA) Negative (Negative) Urine Ketones Negative (Negative) Urine Occult Blood 3+ H (Negative) Urine Nitrite Negative (Negative) Urine Bilirubin 1+ H (Negative) Urine Urobilinogen 0.2 (0.2-1.0) Ur Leukocyte Esterase 1+ H (Negative) Urine RBC Too numerous to cnt H (0-5) /hpf Urine WBC 5-10 H (0-5) /hpf Ur Squamous Epith Cells Not seen (0-5) /hpf Urine Bacteria Not seen (FEW) /hpf Urine Mucus Not seen (FEW) /hpf Departure - Departure Time of Disposition: 06:30 Disposition: Home, Self-Care 01 Clinical Impression: UTI, Urinary tract infectious disease, Hemorrhagic cystitis - Discharge Information *PRESCRIPTION DRUG MONITORING PROGRAM REVIEWED*: No *COPY OF PRESCRIPTION DRUG MONITORING REPORT IN PATIENT BILL: Not Applicable Instructions: Urinary Tract Infection, Adult, Hemorrhagic Cystitis Referrals: Veda Valdez PA-C [Primary Care Provider] - Forms: ED Department Discharge Additional Instructions: Return if condition worsens May resume general activity and regular diet as tolerated Continue usual medications Take CEPHALEXIN antibiotic as prescribed, until completed May use PHENAZOPYRIDINE 100 mg every 8 hours as needed for up to 2 days, for urination discomfort (no prescription required) Follow-up with primary care provider is recommended in 3 to 5 days Sepsis Event Note (ED) - Evaluation Sepsis Screening Result: No Definite Risk - Focused Exam Vital Signs: Vital Signs Temp Pulse Resp BP Pulse Ox 03/19/21 04:32 36.9 C 80 16 145/75 H 94 L - My Orders Last 24 Hours: My Active Orders 03/19/21 04:38 CULTURE URINE [MREF] Stat 03/19/21 06:24 cephALEXin [Keflex] 500 mg PO ONETIME ONE - Assessment/Plan Last 24 Hours: My Active Orders 03/19/21 04:38 CULTURE URINE [MREF] Stat 03/19/21 06:24 cephALEXin [Keflex] 500 mg PO ONETIME ONE
[2021-03-19] MEDS ORDERED: Cephalexin 500 MG Cap PO ONE (06:24)
== END 2021-03-19 06:50 | disposition home or self-care (01) ==
LOC: JD.ED 04:21
DX: N30.90 Cystitis, unspecified without hematuria (principal); I48.91 Unspecified atrial fibrillation; I10 Essential (primary) hypertension; I25.2 Old myocardial infarction; E11.9 Type 2 diabetes mellitus without complications; Z79.82 Long term (current) use of aspirin; Z79.899 Other long term (current) drug therapy
CPT/HCPCS: 81001; 87086; 99283; A9270

== ENCOUNTER 2023-04-22 09:47 | Emergency (ER) | payer MEDICARE, BC ==
[2023-04-22 10:01] VITALS: PULSE 94
[2023-04-22 10:51] LABS: BASOPHILS ABSOLUTE AUTO 0.1 K/mm3 (0.0-0.2); BASOPHILS PERCENT AUTO 0.9 % (0.0-1.0); EOSINOPHILS ABSOLUTE AUTO 0.1 K/mm3 (0.0-0.4); EOSINOPHILS PERCENT AUTO 1.2 % (0.0-6.0); HEMATOCRIT 34.9 % (42.0-52.0); IMMATURE GRAN ABSOLUTE AUTO 0.04 K/mm3 (0.00-0.05); IMMATURE GRAN PERCENT AUTO 0.5 % (0.0-0.4); LYMPHOCYTES ABSOLUTE AUTO 0.8 K/mm3 (1.0-4.8); LYMPHOCYTES PERCENT AUTO 10.1 % (24.0-44.0); MEAN CORPUSCULAR HEMOGLOBIN 29.8 pg (28.0-32.0); MEAN CORPUSCULAR HGB CONC 31.5 g/dl (32.0-36.0); MEAN CORPUSCULAR VOLUME 94.6 fl (83.0-99.0); MEAN PLATELET VOLUME 9.2 fl (9.4-12.4); MONOCYTES ABSOLUTE AUTO 0.5 K/mm3 (0.0-0.8); MONOCYTES PERCENT AUTO 6.7 % (0.0-8.0); NEUTROPHILS ABSOLUTE AUTO 6.5 K/mm3 (1.8-7.7); NEUTROPHILS PERCENT AUTO 80.6 % (41.0-71.0); PLATELET COUNT,PLT 338 K/mm3 (150-400); RED BLOOD CELL COUNT 3.69 M/mm3 (4.52-5.90); WHITE BLOOD CELL COUNT,WBC 8.09 K/mm3 (3.9-11.3)
[2023-04-22 11:08] LABS: INR 2.11; PROTHROMBIN TIME 21.4 SECONDS (9.7-12.0)
[2023-04-22 12:18] VITALS: BP 118/74
== END 2023-04-22 12:15 | disposition home or self-care (01) ==
LOC: JD.ED 09:47
DX: R04.0 Epistaxis (principal); E11.9 Type 2 diabetes mellitus without complications; I48.91 Unspecified atrial fibrillation; E78.00 Pure hypercholesterolemia, unspecified; I10 Essential (primary) hypertension; I25.2 Old myocardial infarction; Z86.73 Personal history of transient ischemic attack (TIA), and cerebral infarction without residual deficits; Z95.1 Presence of aortocoronary bypass graft; Z79.82 Long term (current) use of aspirin; Z79.01 Long term (current) use of anticoagulants; Z79.899 Other long term (current) drug therapy
CPT/HCPCS: 36415; 85025; 85610; 85730; 99283

== ENCOUNTER 2023-04-24 09:33 | Emergency (ER) | payer MEDICARE, BC ==
[2023-04-24] MEDS ORDERED: Sodium Chloride 0.9% 10 ML Syringe FLUSH PRN (09:36)
[2023-04-24 11:27] LABS: BASOPHILS ABSOLUTE AUTO 0.1 K/mm3 (0.0-0.2); BASOPHILS PERCENT AUTO 0.8 % (0.0-1.0); EOSINOPHILS ABSOLUTE AUTO 0.1 K/mm3 (0.0-0.4); EOSINOPHILS PERCENT AUTO 1.5 % (0.0-6.0); HEMATOCRIT 30.6 % (42.0-52.0); HEMOGLOBIN 9.7 gm/dl (14.0-18.0); IMMATURE GRAN ABSOLUTE AUTO 0.04 K/mm3 (0.00-0.05); IMMATURE GRAN PERCENT AUTO 0.6 % (0.0-0.4); LYMPHOCYTES ABSOLUTE AUTO 0.7 K/mm3 (1.0-4.8); LYMPHOCYTES PERCENT AUTO 9.6 % (24.0-44.0); MEAN CORPUSCULAR HGB CONC 31.7 g/dl (32.0-36.0); MEAN CORPUSCULAR VOLUME 94.7 fl (83.0-99.0); MEAN PLATELET VOLUME 8.9 fl (9.4-12.4); MONOCYTES ABSOLUTE AUTO 0.5 K/mm3 (0.0-0.8); NEUTROPHILS ABSOLUTE AUTO 5.8 K/mm3 (1.8-7.7); NEUTROPHILS PERCENT AUTO 80.5 % (41.0-71.0); RED BLOOD CELL COUNT 3.23 M/mm3 (4.52-5.90); WHITE BLOOD CELL COUNT,WBC 7.26 K/mm3 (3.9-11.3)
[2023-04-24 11:32] LABS: PLATELET COUNT,PLT 256 K/mm3 (150-400)
[2023-04-24 11:42] LABS: INR 2.11; PROTHROMBIN TIME 21.4 SECONDS (9.7-12.0)
[2023-04-24 11:44] LABS: PTT,PARTIAL THROMBOPLSTIN TIME 33.1 SECONDS (21.7-31.4)
[2023-04-24] MEDS ORDERED: Acetaminophen 325 MG Tab PO ONE (14:41)
[2023-04-24 19:56] VITALS: BP 118/66; PULSE 90
== END 2023-04-24 15:30 | disposition home or self-care (01) ==
LOC: JD.ED 09:33
DX: R04.0 Epistaxis (principal); E11.9 Type 2 diabetes mellitus without complications; E78.00 Pure hypercholesterolemia, unspecified; I10 Essential (primary) hypertension; I25.2 Old myocardial infarction; Z79.82 Long term (current) use of aspirin; Z95.1 Presence of aortocoronary bypass graft; Z79.899 Other long term (current) drug therapy; Z86.73 Personal history of transient ischemic attack (TIA), and cerebral infarction without residual deficits
CPT/HCPCS: 30903; 36415; 85025; 85610; 85730; 99283; 99284

== ENCOUNTER 2023-06-08 21:37 | Emergency (ER) | payer MEDICARE, BC ==
[2023-06-08 23:12] VITALS: BP 108/71; PULSE 70
== END 2023-06-08 23:11 | disposition home or self-care (01) ==
LOC: JD.ED 21:37
DX: I10 Essential (primary) hypertension (principal); F41.9 Anxiety disorder, unspecified; E78.00 Pure hypercholesterolemia, unspecified; I48.91 Unspecified atrial fibrillation; I25.2 Old myocardial infarction; E11.9 Type 2 diabetes mellitus without complications; Z86.73 Personal history of transient ischemic attack (TIA), and cerebral infarction without residual deficits; Z95.1 Presence of aortocoronary bypass graft; Z90.49 Acquired absence of other specified parts of digestive tract; Z79.899 Other long term (current) drug therapy
CPT/HCPCS: 99283

== ENCOUNTER 2023-12-07 08:04 | Emergency (ER) | payer MEDICARE, BC ==
[2023-12-07 08:54] LABS: BASOPHILS PERCENT AUTO 0.4 % (0.0-1.0); EOSINOPHILS ABSOLUTE AUTO 0.1 K/mm3 (0.0-0.4); EOSINOPHILS PERCENT AUTO 3.1 % (0.0-6.0); HEMOGLOBIN 15.1 gm/dl (14.0-18.0); IMMATURE GRAN ABSOLUTE AUTO 0.02 K/mm3 (0.00-0.05); IMMATURE GRAN PERCENT AUTO 0.4 % (0.0-0.4); LYMPHOCYTES ABSOLUTE AUTO 0.7 K/mm3 (1.0-4.8); LYMPHOCYTES PERCENT AUTO 15.2 % (24.0-44.0); MEAN CORPUSCULAR HEMOGLOBIN 30.6 pg (28.0-32.0); MEAN CORPUSCULAR HGB CONC 34.3 g/dl (32.0-36.0); MEAN CORPUSCULAR VOLUME 89.2 fl (83.0-99.0); MEAN PLATELET VOLUME 10.4 fl (9.4-12.4); MONOCYTES ABSOLUTE AUTO 0.4 K/mm3 (0.0-0.8); MONOCYTES PERCENT AUTO 7.9 % (0.0-8.0); NEUTROPHILS ABSOLUTE AUTO 3.3 K/mm3 (1.8-7.7); PLATELET COUNT,PLT 162 K/mm3 (150-400); RED BLOOD CELL COUNT 4.93 M/mm3 (4.52-5.90); WHITE BLOOD CELL COUNT,WBC 4.54 K/mm3 (3.9-11.3)
[2023-12-07 09:03] LABS: A/G RATIO 1.4 (1-2); ALBUMIN 3.9 g/dl (3.4-5.0); BILIRUBIN TOTAL 1.1 mg/dL (0.2-1.0); BUN/CREATININE RATIO 15.3 (14-18); CREATININE 1.5 mg/dL (0.7-1.3); EST CRCL DRUG DOSING (CG) 46.02 mL/min; MAGNESIUM 1.9 mg/dL (1.8-2.4); PROTEIN TOTAL,TP 6.7 g/dl (6.4-8.2)
[2023-12-07] MEDS: Sodium Chloride 0.9% 1,000 ML IV SCH (09:03)
[2023-12-07] MEDS: Sodium Chloride 0.9% 10 ML Syringe FLUSH PRN (09:03)
[2023-12-07 10:22] LABS: APPEARANCE,URINE CLEAR (Clear); BILIRUBIN,URINE 1+ (Negative); COLOR,URINE YELLOW (Yellow); GLUCOSE,URINE NEGATIVE (Negative); KETONES,URINE 2+ (Negative); LEUKOCYTE ESTERASE,URINE TRACE (Negative); NITRITE,URINE NEGATIVE (Negative); OCCULT BLOOD,URINE NEGATIVE (Negative); PH,URINE 5.5 (5.0-8.0); PROTEIN,URINE TRACE (Negative); UROBILINOGEN,URINE 0.2 (0.2-1.0)
[2023-12-07] MEDS: Carvedilol 3.125 MG Tab PO ONE (10:40)
[2023-12-07] MEDS: amLODIPine 5 MG Tab PO ONE (10:40)
[2023-12-07 10:50] LABS: BACTERIA,URINE FEW /hpf (FEW); MUCUS,URINE FEW /hpf (FEW); RBC,URINE 0-5 /hpf (0-5); SQUAMOUS EPITHELIAL CELLS,UR 0-5 /hpf (0-5); WBC,URINE 0-5 /hpf (0-5)
[2023-12-07 12:27] VITALS: BP 183/100; PULSE 95
== END 2023-12-07 12:24 | disposition home or self-care (01) ==
LOC: JD.ED 08:04
DX: F33.2 Major depressive disorder, recurrent severe without psychotic features (principal); E78.00 Pure hypercholesterolemia, unspecified; I10 Essential (primary) hypertension; I25.2 Old myocardial infarction; E11.9 Type 2 diabetes mellitus without complications; Z86.73 Personal history of transient ischemic attack (TIA), and cerebral infarction without residual deficits; Z95.1 Presence of aortocoronary bypass graft; Z79.899 Other long term (current) drug therapy
CPT/HCPCS: 36415; 80053; 81001; 83690; 83735; 85025; 96360; 99283; A9270; J3490; J7030

== ENCOUNTER 2023-12-09 19:22 | Emergency (ER) | payer MEDICARE, BC ==
[2023-12-09] MEDS: Sodium Chloride 0.9% 10 ML Syringe FLUSH PRN (20:59)
[2023-12-09] MEDS: Sodium Chloride 0.9% 1,000 ML IV SCH (20:59)
[2023-12-09 21:01] LABS: BASOPHILS PERCENT AUTO 0.2 % (0.0-1.0); EOSINOPHILS ABSOLUTE AUTO 0.1 K/mm3 (0.0-0.4); EOSINOPHILS PERCENT AUTO 1.1 % (0.0-6.0); HEMATOCRIT 45.5 % (42.0-52.0); HEMOGLOBIN 15.4 gm/dl (14.0-18.0); IMMATURE GRAN ABSOLUTE AUTO 0.03 K/mm3 (0.00-0.05); IMMATURE GRAN PERCENT AUTO 0.4 % (0.0-0.4); LYMPHOCYTES ABSOLUTE AUTO 0.8 K/mm3 (1.0-4.8); LYMPHOCYTES PERCENT AUTO 9.9 % (24.0-44.0); MEAN CORPUSCULAR HEMOGLOBIN 30.3 pg (28.0-32.0); MEAN CORPUSCULAR HGB CONC 33.8 g/dl (32.0-36.0); MEAN CORPUSCULAR VOLUME 89.6 fl (83.0-99.0); MEAN PLATELET VOLUME 9.8 fl (9.4-12.4); MONOCYTES ABSOLUTE AUTO 0.6 K/mm3 (0.0-0.8); MONOCYTES PERCENT AUTO 7.3 % (0.0-8.0); NEUTROPHILS ABSOLUTE AUTO 6.8 K/mm3 (1.8-7.7); NEUTROPHILS PERCENT AUTO 81.1 % (41.0-71.0); PLATELET COUNT,PLT 173 K/mm3 (150-400); RED BLOOD CELL COUNT 5.08 M/mm3 (4.52-5.90); WHITE BLOOD CELL COUNT,WBC 8.41 K/mm3 (3.9-11.3)
[2023-12-09 21:30] LABS: A/G RATIO 1.4 (1-2); ANION GAP 15.3 (5-15); BILIRUBIN TOTAL 1.2 mg/dL (0.2-1.0); BUN/CREATININE RATIO 14.3 (14-18); C-REACTIVE PROTEIN 0.08 mg/dL (<0.30); CREATININE 1.4 mg/dL (0.7-1.3); EST CRCL DRUG DOSING (CG) 49.3 mL/min; POTASSIUM,K 4.3 mEq/L (3.5-5.1); PROTEIN TOTAL,TP 6.9 g/dl (6.4-8.2)
[2023-12-09 23:00] LABS: APPEARANCE,URINE CLEAR (Clear); BILIRUBIN,URINE NEGATIVE (Negative); COLOR,URINE YELLOW (Yellow); GLUCOSE,URINE NEGATIVE (Negative); KETONES,URINE 3+ (Negative); LEUKOCYTE ESTERASE,URINE NEGATIVE (Negative); NITRITE,URINE NEGATIVE (Negative); OCCULT BLOOD,URINE NEGATIVE (Negative); PH,URINE 5.5 (5.0-8.0); PROTEIN,URINE NEGATIVE (Negative); UROBILINOGEN,URINE 0.2 (0.2-1.0)
[2023-12-10 00:38] VITALS: BP 164/94; PULSE 80
== END 2023-12-10 00:20 | disposition home or self-care (01) ==
LOC: JD.ED 19:22
DX: R63.0 Anorexia (principal); I10 Essential (primary) hypertension; E78.00 Pure hypercholesterolemia, unspecified; E11.9 Type 2 diabetes mellitus without complications; Z90.49 Acquired absence of other specified parts of digestive tract; Z79.899 Other long term (current) drug therapy
CPT/HCPCS: 36415; 74019; 80053; 81003; 83605; 83735; 85025; 86140; 96360; 96361; 99284; J3490; J7030; 99282

== ENCOUNTER 2023-12-11 21:38 | Emergency (ER) | payer MEDICARE, BC ==
[2023-12-11 21:59] LABS: BASOPHILS PERCENT AUTO 0.3 % (0.0-1.0); EOSINOPHILS ABSOLUTE AUTO 0.1 K/mm3 (0.0-0.4); EOSINOPHILS PERCENT AUTO 1.7 % (0.0-6.0); IMMATURE GRAN ABSOLUTE AUTO 0.02 K/mm3 (0.00-0.05); IMMATURE GRAN PERCENT AUTO 0.3 % (0.0-0.4); LYMPHOCYTES ABSOLUTE AUTO 1.1 K/mm3 (1.0-4.8); LYMPHOCYTES PERCENT AUTO 18.8 % (24.0-44.0); MEAN CORPUSCULAR HGB CONC 34.1 g/dl (32.0-36.0); MEAN CORPUSCULAR VOLUME 90.9 fl (83.0-99.0); MEAN PLATELET VOLUME 10.2 fl (9.4-12.4); MONOCYTES ABSOLUTE AUTO 0.5 K/mm3 (0.0-0.8); MONOCYTES PERCENT AUTO 8.2 % (0.0-8.0); NEUTROPHILS ABSOLUTE AUTO 4.2 K/mm3 (1.8-7.7); NEUTROPHILS PERCENT AUTO 70.7 % (41.0-71.0); PLATELET COUNT,PLT 166 K/mm3 (150-400); RED BLOOD CELL COUNT 4.84 M/mm3 (4.52-5.90); WHITE BLOOD CELL COUNT,WBC 5.95 K/mm3 (3.9-11.3)
[2023-12-11] MEDS: Lactated Ringers 1,000 ML IV SCH (22:08)
[2023-12-11] MEDS: Sodium Chloride 0.9% 10 ML Syringe FLUSH PRN (22:08)
[2023-12-11 22:18] LABS: INR 1.16; PROTHROMBIN TIME 12.2 SECONDS (9.7-12.0)
[2023-12-11 22:19] LABS: PTT,PARTIAL THROMBOPLSTIN TIME 25.5 SECONDS (21.7-31.4)
[2023-12-11 22:30] LABS: A/G RATIO 1.4 (1-2); ALBUMIN 3.8 g/dl (3.4-5.0); BILIRUBIN TOTAL 0.9 mg/dL (0.2-1.0); BUN/CREATININE RATIO 15.9 (14-18); CALCIUM 8.8 mg/dL (8.5-10.1); CREATININE 1.7 mg/dL (0.7-1.3); EST CRCL DRUG DOSING (CG) 39.36 mL/min; PROTEIN TOTAL,TP 6.5 g/dl (6.4-8.2)
[2023-12-11] MEDS: Lactated Ringers 1,000 ML IV ONE (23:35)
[2023-12-12 00:47] VITALS: BP 128/70; PULSE 67
== END 2023-12-12 00:40 | disposition home or self-care (01) ==
LOC: JD.ED 21:38
DX: E86.0 Dehydration (principal); R53.1 Weakness; E78.00 Pure hypercholesterolemia, unspecified; I10 Essential (primary) hypertension; E11.9 Type 2 diabetes mellitus without complications; Z90.49 Acquired absence of other specified parts of digestive tract; Z79.899 Other long term (current) drug therapy
CPT/HCPCS: 36415; 70450; 70450-26; 71045; 71045-26; 80053; 83690; 83880; 84484; 85025; 85610; 85730; 93005; 96360; 96361; 99283; 99285-25; J3490; J7120

== ENCOUNTER 2023-12-15 23:44 | Emergency (ER) | payer MEDICARE, BC ==
[2023-12-16] MEDS: Sodium Chloride 0.9% 10 ML Syringe FLUSH PRN (00:22)
[2023-12-16] MEDS: Sodium Chloride 0.9% 1,000 ML IV ONE ×2 (00:22→02:36)
[2023-12-16 00:30] LABS: BASOPHILS PERCENT AUTO 0.6 % (0.0-1.0); EOSINOPHILS ABSOLUTE AUTO 0.1 K/mm3 (0.0-0.4); EOSINOPHILS PERCENT AUTO 2.3 % (0.0-6.0); HEMATOCRIT 42.4 % (42.0-52.0); HEMOGLOBIN 14.7 gm/dl (14.0-18.0); IMMATURE GRAN ABSOLUTE AUTO 0.02 K/mm3 (0.00-0.05); IMMATURE GRAN PERCENT AUTO 0.4 % (0.0-0.4); LYMPHOCYTES PERCENT AUTO 18.1 % (24.0-44.0); MEAN CORPUSCULAR HEMOGLOBIN 30.7 pg (28.0-32.0); MEAN CORPUSCULAR HGB CONC 34.7 g/dl (32.0-36.0); MEAN CORPUSCULAR VOLUME 88.5 fl (83.0-99.0); MEAN PLATELET VOLUME 10.4 fl (9.4-12.4); MONOCYTES ABSOLUTE AUTO 0.6 K/mm3 (0.0-0.8); MONOCYTES PERCENT AUTO 11.6 % (0.0-8.0); NEUTROPHILS ABSOLUTE AUTO 3.5 K/mm3 (1.8-7.7); PLATELET COUNT,PLT 172 K/mm3 (150-400); RED BLOOD CELL COUNT 4.79 M/mm3 (4.52-5.90); WHITE BLOOD CELL COUNT,WBC 5.24 K/mm3 (3.9-11.3)
[2023-12-16 00:50] LABS: A/G RATIO 1.4 (1-2); ALBUMIN 3.6 g/dl (3.4-5.0); ANION GAP 12.7 (5-15); BUN/CREATININE RATIO 14.6 (14-18); CREATININE 1.3 mg/dL (0.7-1.3); EST CRCL DRUG DOSING (CG) 46.61 mL/min; MAGNESIUM 1.8 mg/dL (1.8-2.4); POTASSIUM,K 3.7 mEq/L (3.5-5.1); PROTEIN TOTAL,TP 6.2 g/dl (6.4-8.2)
[2023-12-16 05:25] LABS: APPEARANCE,URINE CLEAR (Clear); BILIRUBIN,URINE NEGATIVE (Negative); COLOR,URINE YELLOW (Yellow); GLUCOSE,URINE NEGATIVE (Negative); KETONES,URINE 2+ (Negative); LEUKOCYTE ESTERASE,URINE NEGATIVE (Negative); NITRITE,URINE NEGATIVE (Negative); OCCULT BLOOD,URINE NEGATIVE (Negative); PH,URINE 5.5 (5.0-8.0); PROTEIN,URINE NEGATIVE (Negative); UROBILINOGEN,URINE 0.2 (0.2-1.0)
[2023-12-16 05:36] VITALS: BP 185/100; PULSE 69
== END 2023-12-16 05:35 | disposition home or self-care (01) ==
LOC: JD.ED 23:44
DX: F33.2 Major depressive disorder, recurrent severe without psychotic features (principal); F03.B3 Unspecified dementia, moderate, with mood disturbance; R53.1 Weakness; I48.91 Unspecified atrial fibrillation; E11.9 Type 2 diabetes mellitus without complications; I25.2 Old myocardial infarction; Z90.49 Acquired absence of other specified parts of digestive tract; Z79.899 Other long term (current) drug therapy
CPT/HCPCS: 36415; 80053; 81003; 83735; 85025; 93005; 96360; 96361; 99284; J3490; J7030; 93010; 99283

== ENCOUNTER 2023-12-18 00:42 | Emergency (ER) | payer MEDICARE, BC ==
[2023-12-18] MEDS ORDERED: Sodium Chloride 0.9% 10 ML Syringe FLUSH PRN (01:13)
[2023-12-18 01:46] LABS: BASOPHILS PERCENT AUTO 0.6 % (0.0-1.0); EOSINOPHILS ABSOLUTE AUTO 0.1 K/mm3 (0.0-0.4); EOSINOPHILS PERCENT AUTO 2.3 % (0.0-6.0); HEMATOCRIT 38.5 % (42.0-52.0); IMMATURE GRAN ABSOLUTE AUTO 0.02 K/mm3 (0.00-0.05); IMMATURE GRAN PERCENT AUTO 0.4 % (0.0-0.4); LYMPHOCYTES PERCENT AUTO 19.9 % (24.0-44.0); MEAN CORPUSCULAR HEMOGLOBIN 30.7 pg (28.0-32.0); MEAN CORPUSCULAR HGB CONC 34.3 g/dl (32.0-36.0); MEAN CORPUSCULAR VOLUME 89.5 fl (83.0-99.0); MEAN PLATELET VOLUME 10.3 fl (9.4-12.4); MONOCYTES ABSOLUTE AUTO 0.5 K/mm3 (0.0-0.8); MONOCYTES PERCENT AUTO 10.7 % (0.0-8.0); NEUTROPHILS ABSOLUTE AUTO 3.2 K/mm3 (1.8-7.7); NEUTROPHILS PERCENT AUTO 66.1 % (41.0-71.0); PLATELET COUNT,PLT 157 K/mm3 (150-400); WHITE BLOOD CELL COUNT,WBC 4.78 K/mm3 (3.9-11.3)
[2023-12-18 01:52] LABS: HEMOGLOBIN 13.2 gm/dl (14.0-18.0)
[2023-12-18 02:08] LABS: LACTIC ACID 0.8 mmol/L (0.4-2.0)
[2023-12-18 02:09] LABS: A/G RATIO 1.4 (1-2); ALBUMIN 3.2 g/dl (3.4-5.0); ANION GAP 9.6 (5-15); BILIRUBIN TOTAL 0.5 mg/dL (0.2-1.0); CALCIUM 8.5 mg/dL (8.5-10.1); CREATININE 1.2 mg/dL (0.7-1.3); EST CRCL DRUG DOSING (CG) 57.52 mL/min; POTASSIUM,K 3.6 mEq/L (3.5-5.1); PROTEIN TOTAL,TP 5.5 g/dl (6.4-8.2)
[2023-12-18 03:28] LABS: APPEARANCE,URINE CLEAR (Clear); BILIRUBIN,URINE NEGATIVE (Negative); COLOR,URINE YELLOW (Yellow); GLUCOSE,URINE NEGATIVE (Negative); KETONES,URINE TRACE (Negative); LEUKOCYTE ESTERASE,URINE NEGATIVE (Negative); NITRITE,URINE NEGATIVE (Negative); OCCULT BLOOD,URINE NEGATIVE (Negative); PH,URINE 5.5 (5.0-8.0); PROTEIN,URINE NEGATIVE (Negative); UROBILINOGEN,URINE 0.2 (0.2-1.0)
[2023-12-18 05:13] VITALS: BP 141/61; PULSE 57
== END 2023-12-18 04:40 | disposition home or self-care (01) ==
LOC: JD.ED 00:42
DX: R53.83 Other fatigue (principal); R53.1 Weakness; R63.0 Anorexia; I48.91 Unspecified atrial fibrillation; I25.2 Old myocardial infarction; E11.9 Type 2 diabetes mellitus without complications; Z86.73 Personal history of transient ischemic attack (TIA), and cerebral infarction without residual deficits; Z95.1 Presence of aortocoronary bypass graft; Z79.02 Long term (current) use of antithrombotics/antiplatelets; Z79.899 Other long term (current) drug therapy
CPT/HCPCS: 36415; 71045; 71045-26; 80053; 81003; 83605; 83735; 83880; 84484; 85025; 86140; 93005; 93010; 99283; 99285

== ENCOUNTER 2023-12-19 13:40 | Emergency (ER) | payer BC, MEDICARE ==
[2023-12-19 14:10] LABS: BASOPHILS PERCENT AUTO 0.4 % (0.0-1.0); EOSINOPHILS PERCENT AUTO 0.5 % (0.0-6.0); HEMATOCRIT 42.6 % (42.0-52.0); HEMOGLOBIN 14.9 gm/dl (14.0-18.0); IMMATURE GRAN ABSOLUTE AUTO 0.01 K/mm3 (0.00-0.05); IMMATURE GRAN PERCENT AUTO 0.2 % (0.0-0.4); LYMPHOCYTES ABSOLUTE AUTO 0.7 K/mm3 (1.0-4.8); LYMPHOCYTES PERCENT AUTO 11.9 % (24.0-44.0); MEAN CORPUSCULAR HEMOGLOBIN 30.4 pg (28.0-32.0); MEAN CORPUSCULAR VOLUME 86.9 fl (83.0-99.0); MEAN PLATELET VOLUME 10.4 fl (9.4-12.4); MONOCYTES ABSOLUTE AUTO 0.5 K/mm3 (0.0-0.8); MONOCYTES PERCENT AUTO 8.1 % (0.0-8.0); NEUTROPHILS ABSOLUTE AUTO 4.4 K/mm3 (1.8-7.7); NEUTROPHILS PERCENT AUTO 78.9 % (41.0-71.0); PLATELET COUNT,PLT 174 K/mm3 (150-400); WHITE BLOOD CELL COUNT,WBC 5.53 K/mm3 (3.9-11.3)
[2023-12-19 14:37] LABS: A/G RATIO 1.3 (1-2); ALBUMIN 3.4 g/dl (3.4-5.0); ANION GAP 12.8 (5-15); BILIRUBIN TOTAL 0.9 mg/dL (0.2-1.0); BUN/CREATININE RATIO 9.1 (14-18); CALCIUM 8.7 mg/dL (8.5-10.1); CREATININE 1.1 mg/dL (0.7-1.3); EST CRCL DRUG DOSING (CG) 62.75 mL/min; POTASSIUM,K 3.8 mEq/L (3.5-5.1)
[2023-12-19] MEDS: Sodium Chloride 0.9% 1,000 ML IV STA (15:32)
[2023-12-19 19:15] VITALS: BP 190/86; PULSE 70
== END 2023-12-19 18:35 | disposition home or self-care (01) ==
LOC: JD.ED 13:40
DX: F32.A Depression, unspecified (principal); I10 Essential (primary) hypertension; F41.9 Anxiety disorder, unspecified; I48.91 Unspecified atrial fibrillation; E11.9 Type 2 diabetes mellitus without complications; Z79.02 Long term (current) use of antithrombotics/antiplatelets; Z79.899 Other long term (current) drug therapy; Z95.1 Presence of aortocoronary bypass graft; Z86.73 Personal history of transient ischemic attack (TIA), and cerebral infarction without residual deficits; Z90.49 Acquired absence of other specified parts of digestive tract
CPT/HCPCS: 36415; 80053; 83690; 85025; 96360; 96361; 99285; J7030

== ENCOUNTER 2023-12-28 06:36 | Day surgery (SDC) | payer MEDICARE ==
[~2023-12-28 06:36] MED LIST: Lactated Ringers 1,000 ML IV SCH; Sodium Chloride 0.9% 10 ML Syringe FLUSH PRN; Sodium Chloride 0.9% 10 ML Syringe FLUSH SCH
[2023-12-28] MEDS: Lactated Ringers 1,000 ML IV SCH (06:45)
[2023-12-28] MEDS ORDERED: Propofol 200 MG/20 ML SDV ONE (07:16)
[2023-12-28] MEDS ORDERED: ePHEDrine 50 MG/ML SDV ONE (07:32)
[2023-12-28 10:27] VITALS: BP 155/75; PULSE 67
== END 2023-12-28 10:00 | disposition home or self-care (01) ==
LOC: JD.SDS 06:36
PROVIDERS: ATTEND Surgery
DX: K29.50 Unspecified chronic gastritis without bleeding (principal); K20.90 Esophagitis, unspecified without bleeding; K22.70 Barrett's esophagus without dysplasia; E11.9 Type 2 diabetes mellitus without complications; I25.10 Atherosclerotic heart disease of native coronary artery without angina pectoris; I10 Essential (primary) hypertension; K21.9 Gastro-esophageal reflux disease without esophagitis; F32.A Depression, unspecified; Z79.899 Other long term (current) drug therapy
CPT/HCPCS: 43239; J2704; J7120; 00731; 88305; 99100; J3490

== ENCOUNTER 2024-02-07 22:45 | Emergency (ER) | payer MEDICARE, BC ==
[2024-02-07] MEDS ORDERED: Sodium Chloride 0.9% 10 ML Syringe FLUSH PRN (23:55)
[2024-02-08 00:33] LABS: BASOPHILS PERCENT AUTO 0.3 % (0.0-1.0); EOSINOPHILS ABSOLUTE AUTO 0.1 K/mm3 (0.0-0.4); HEMATOCRIT 45.4 % (42.0-52.0); HEMOGLOBIN 15.5 gm/dl (14.0-18.0); IMMATURE GRAN ABSOLUTE AUTO 0.02 K/mm3 (0.00-0.05); IMMATURE GRAN PERCENT AUTO 0.3 % (0.0-0.4); LYMPHOCYTES ABSOLUTE AUTO 0.7 K/mm3 (1.0-4.8); MEAN CORPUSCULAR HEMOGLOBIN 31.2 pg (28.0-32.0); MEAN CORPUSCULAR HGB CONC 34.1 g/dl (32.0-36.0); MEAN CORPUSCULAR VOLUME 91.3 fl (83.0-99.0); MEAN PLATELET VOLUME 9.8 fl (9.4-12.4); MONOCYTES ABSOLUTE AUTO 0.4 K/mm3 (0.0-0.8); MONOCYTES PERCENT AUTO 6.9 % (0.0-8.0); NEUTROPHILS ABSOLUTE AUTO 4.9 K/mm3 (1.8-7.7); NEUTROPHILS PERCENT AUTO 80.5 % (41.0-71.0); PLATELET COUNT,PLT 143 K/mm3 (150-400); RED BLOOD CELL COUNT 4.97 M/mm3 (4.52-5.90); WHITE BLOOD CELL COUNT,WBC 6.07 K/mm3 (3.9-11.3)
[2024-02-08 01:00] LABS: A/G RATIO 1.5 (1-2); ALANINE AMINOTRANSFERASE,ALT 29 U/L (16-63); ALBUMIN 3.5 g/dl (3.4-5.0); ALKALINE PHOSPHATASE 59 U/L (46-116); ANION GAP 13.3 (5-15); ASPARTATE AMNIOTRANSFERASE,AST 18 U/L (15-37); BILIRUBIN TOTAL 0.9 mg/dL (0.2-1.0); BLOOD UREA NITROGEN,BUN 19 mg/dL (7-18); BUN/CREATININE RATIO 17.3 (14-18); CALCIUM 8.8 mg/dL (8.5-10.1); CARBON DIOXIDE,CO2 29 mEq/L (21-32); CHLORIDE,CL 104 mEq/L (98-107); CREATININE 1.1 mg/dL (0.7-1.3); EST CRCL DRUG DOSING (CG) 60.31 mL/min; ESTIMATED GFR 70 mL/min (>60); GLUCOSE RANDOM 90 mg/dL (70-99); LIPASE 50 U/L (16-77); MAGNESIUM 1.9 mg/dL (1.8-2.4); POTASSIUM,K 4.3 mEq/L (3.5-5.1); PROTEIN TOTAL,TP 5.8 g/dl (6.4-8.2); SODIUM,NA 142 mEq/L (136-145); TROPONIN I HIGH SENSITIVITY 7 pg/mL (<=76)
[2024-02-08 01:01] LABS: LACTIC ACID 0.7 mmol/L (0.4-2.0)
[2024-02-08 01:05] LABS: C-REACTIVE PROTEIN < 0.05 mg/dL (<0.30); TSH 1.442 uIU/mL (0.358-3.74)
[2024-02-08] MEDS: Iopamidol 612 MG/ML 100 ML Bottle IVPUSH ONE (01:18)
[2024-02-08] MEDS: Sodium Chloride 0.9% 1,000 ML IV SCH (01:23)
[2024-02-08] MEDS: cefTRIAXone 2 GM in Sodium Chloride 0.9% 100 ML IV ONE (04:02)
[2024-02-08 04:08] LABS: APPEARANCE,URINE CLEAR (Clear); BILIRUBIN,URINE NEGATIVE (Negative); COLOR,URINE YELLOW (Yellow); GLUCOSE,URINE NEGATIVE (Negative); KETONES,URINE 1+ (Negative); LEUKOCYTE ESTERASE,URINE NEGATIVE (Negative); NITRITE,URINE NEGATIVE (Negative); OCCULT BLOOD,URINE NEGATIVE (Negative); PH,URINE 6.5 (5.0-8.0); PROTEIN,URINE NEGATIVE (Negative); UROBILINOGEN,URINE 0.2 (0.2-1.0)
[2024-02-08 04:19] LABS: BARBITURATE SCREEN,URINE NEGATIVE (CUTOFF=200); BENZODIAZEPINES SCREEN,URINE NEGATIVE (CUTOFF=150); BUPRENORPHINE SCREEN,URINE NEGATIVE (CUTOFF=10); METHADONE SCREEN, URINE NEGATIVE (CUT0FF=200); METHAMPHETAMINES SCREEN, URINE NEGATIVE (CUTOFF=500); OXYCODONE SCREEN,URINE NEGATIVE (CUT0FF=100); THC SCREEN,URINE 20 NG/ML NEGATIVE (CUTOFF=50)
[2024-02-08 04:25] LABS: AMPHETAMINES SCREEN, URINE NEGATIVE (CUTOFF=500)
[2024-02-08 04:30] LABS: EPITHELIAL CELLS,URINE 0-5 /hpf (0-5); RBC,URINE NOT SEEN /hpf (0-5); WBC,URINE 0-5 /hpf (0-5)
[2024-02-08 04:31] LABS: BACTERIA,URINE NOT SEEN /hpf (FEW)
[2024-02-08 04:33] LABS: MUCUS,URINE RARE /hpf (FEW)
[2024-02-08 05:47] VITALS: BP 168/97; PULSE 77
== END 2024-02-08 05:48 | disposition home or self-care (01) ==
LOC: JD.ED 22:45
DX: K59.00 Constipation, unspecified (principal); K55.9 Vascular disorder of intestine, unspecified; I10 Essential (primary) hypertension; I25.2 Old myocardial infarction; E78.00 Pure hypercholesterolemia, unspecified; E11.9 Type 2 diabetes mellitus without complications; Z95.1 Presence of aortocoronary bypass graft; Z90.49 Acquired absence of other specified parts of digestive tract; Z79.899 Other long term (current) drug therapy
CPT/HCPCS: 36415; 74019; 74177; 80053; 80143; 80179; 80306; 80307; 81001; 83605; 83690; 83735; 84443; 84484; 85025; 86140; 93005; 96361; 96365; 99284; J0696; J3490; J7030; Q9967; 93010

== ENCOUNTER 2024-09-13 15:08 | Emergency (ER) | payer MEDICARE, BC ==
[2024-09-13 16:49] LABS: BASOPHILS PERCENT AUTO 0.3 % (0.0-1.0); EOSINOPHILS ABSOLUTE AUTO 0.1 K/mm3 (0.0-0.4); EOSINOPHILS PERCENT AUTO 1.2 % (0.0-6.0); HEMATOCRIT 48.4 % (42.0-52.0); HEMOGLOBIN 16.3 gm/dl (14.0-18.0); IMMATURE GRAN ABSOLUTE AUTO 0.02 K/mm3 (0.00-0.05); IMMATURE GRAN PERCENT AUTO 0.3 % (0.0-0.4); LYMPHOCYTES ABSOLUTE AUTO 0.7 K/mm3 (1.0-4.8); MEAN CORPUSCULAR HGB CONC 33.7 g/dl (32.0-36.0); MEAN PLATELET VOLUME 10.1 fl (9.4-12.4); MONOCYTES ABSOLUTE AUTO 0.4 K/mm3 (0.0-0.8); MONOCYTES PERCENT AUTO 7.2 % (0.0-8.0); NEUTROPHILS ABSOLUTE AUTO 4.7 K/mm3 (1.8-7.7); PLATELET COUNT,PLT 149 K/mm3 (150-400); RED BLOOD CELL COUNT 5.44 M/mm3 (4.52-5.90); WHITE BLOOD CELL COUNT,WBC 5.98 K/mm3 (3.9-11.3)
[2024-09-13 17:21] LABS: A/G RATIO 1.2 (1-2); ALBUMIN 3.5 g/dl (3.4-5.0); ANION GAP 9.9 (5-15); BILIRUBIN TOTAL 0.9 mg/dL (0.2-1.0); BUN/CREATININE RATIO 17.3 (14-18); CREATININE 1.1 mg/dL (0.7-1.3); EST CRCL DRUG DOSING (CG) 60.4 mL/min; MAGNESIUM 1.7 mg/dL (1.8-2.4); POTASSIUM,K 4.9 mEq/L (3.5-5.1); PROTEIN TOTAL,TP 6.4 g/dl (6.4-8.2)
[2024-09-13 17:27] LABS: TSH 1.15 uIU/mL (0.358-3.74)
[2024-09-13] MEDS: Magnesium Oxide 400 MG Tab PO ONE (18:09)
[2024-09-13 19:04] VITALS: BP 181/98; PULSE 76
== END 2024-09-13 18:55 | disposition home or self-care (01) ==
LOC: JD.ED 15:08
DX: R42 Dizziness and giddiness (principal); I10 Essential (primary) hypertension; I25.2 Old myocardial infarction; I48.91 Unspecified atrial fibrillation; E11.9 Type 2 diabetes mellitus without complications; Z79.899 Other long term (current) drug therapy; Z90.49 Acquired absence of other specified parts of digestive tract
CPT/HCPCS: 36415; 70450; 72125; 80053; 83735; 84443; 84484; 85025; 93005; 99285; A9270; 93010; 99284

== ENCOUNTER 2024-09-22 02:07 | Inpatient (IN) | payer MEDICARE, BC ==
[2024-09-22] MEDS ORDERED: Sodium Chloride 0.9% 10 ML Syringe FLUSH PRN (02:10)
[2024-09-22 02:19] LABS: BASOPHILS PERCENT AUTO 0.5 % (0.0-1.0); EOSINOPHILS ABSOLUTE AUTO 0.1 K/mm3 (0.0-0.4); EOSINOPHILS PERCENT AUTO 2.3 % (0.0-6.0); HEMATOCRIT 46.2 % (42.0-52.0); HEMOGLOBIN 15.3 gm/dl (14.0-18.0); IMMATURE GRAN ABSOLUTE AUTO 0.01 K/mm3 (0.00-0.05); IMMATURE GRAN PERCENT AUTO 0.2 % (0.0-0.4); MEAN CORPUSCULAR HEMOGLOBIN 30.2 pg (28.0-32.0); MEAN CORPUSCULAR HGB CONC 33.1 g/dl (32.0-36.0); MEAN CORPUSCULAR VOLUME 91.1 fl (83.0-99.0); MONOCYTES ABSOLUTE AUTO 0.6 K/mm3 (0.0-0.8); MONOCYTES PERCENT AUTO 9.7 % (0.0-8.0); NEUTROPHILS ABSOLUTE AUTO 4.3 K/mm3 (1.8-7.7); NEUTROPHILS PERCENT AUTO 70.3 % (41.0-71.0); PLATELET COUNT,PLT 157 K/mm3 (150-400); RED BLOOD CELL COUNT 5.07 M/mm3 (4.52-5.90); WHITE BLOOD CELL COUNT,WBC 6.07 K/mm3 (3.9-11.3)
[2024-09-22 02:44] LABS: A/G RATIO 1.2 (1-2); ALBUMIN 3.4 g/dl (3.4-5.0); ANION GAP 8.4 (5-15); BUN/CREATININE RATIO 15.4 (14-18); CALCIUM 8.9 mg/dL (8.5-10.1); CREATININE 1.3 mg/dL (0.7-1.3); EST CRCL DRUG DOSING (CG) 55.49 mL/min; MAGNESIUM 1.9 mg/dL (1.8-2.4); POTASSIUM,K 4.4 mEq/L (3.5-5.1); PROTEIN TOTAL,TP 6.2 g/dl (6.4-8.2)
[2024-09-22] MEDS: Lidocaine 1% 10 ML MDV INJECT ONE (02:46)
[2024-09-22] MEDS: Lidocaine 2% 5 ML SDV INJECT ONE (03:24)
[2024-09-22] MEDS: Lidocaine 2% 20 ML MDV ONE (03:25)
[2024-09-22] MEDS ORDERED: Ondansetron 4 MG/2 ML SDV IV PRN (04:19)
[2024-09-22] MEDS ORDERED: Acetaminophen 325 MG Tab PO PRN (04:19)
[2024-09-22] MEDS ORDERED: Labetalol 100 MG/20 ML MDV IVPUSH SCH (04:30)
[2024-09-22] MEDS: Labetalol 100 MG/20 ML MDV IVPUSH PRN (04:39)
[2024-09-22] MEDS: Labetalol 100 MG/20 ML MDV IVPUSH ONE (06:21)
[2024-09-22] MEDS: Morphine 2 MG/ML SYRINGE IVPUSH PRN (08:53)
[2024-09-22] MEDS: Acetaminophen 325 MG Tab PO SCH (09:07)
[2024-09-22] MEDS: Sodium Chloride 0.9% 1,000 ML IV ONE (09:07)
[2024-09-22 09:49] LABS: APPEARANCE,URINE CLEAR (Clear); BILIRUBIN,URINE NEGATIVE (Negative); COLOR,URINE YELLOW (Yellow); GLUCOSE,URINE NEGATIVE (Negative); KETONES,URINE 1+ (Negative); LEUKOCYTE ESTERASE,URINE NEGATIVE (Negative); NITRITE,URINE NEGATIVE (Negative); OCCULT BLOOD,URINE NEGATIVE (Negative); PH,URINE 7.5 (5.0-8.0); PROTEIN,URINE NEGATIVE (Negative); UROBILINOGEN,URINE 0.2 (0.2-1.0)
[2024-09-22 09:58] LABS: BARBITURATE SCREEN,URINE NEGATIVE (CUTOFF=200); BENZODIAZEPINES SCREEN,URINE NEGATIVE (CUTOFF=150); BUPRENORPHINE SCREEN,URINE NEGATIVE (CUTOFF=10); METHADONE SCREEN, URINE NEGATIVE (CUT0FF=200); METHAMPHETAMINES SCREEN, URINE NEGATIVE (CUTOFF=500); OXYCODONE SCREEN,URINE NEGATIVE (CUT0FF=100); THC SCREEN,URINE 20 NG/ML NEGATIVE (CUTOFF=50)
[2024-09-22 10:11] LABS: AMPHETAMINES SCREEN, URINE NEGATIVE (CUTOFF=500)
[2024-09-22] MEDS: Sodium Chloride 0.9% 1,000 ML IV SCH (11:03)
[2024-09-22] MEDS: amLODIPine 2.5 MG Tab PO SCH (16:39)
[2024-09-22] MEDS: Melatonin 3 MG Tab PO SCH (21:03)
[2024-09-22] MEDS: hydrOXYzine HCl 50 MG Tab PO PRN (23:39)
[2024-09-23] MEDS ORDERED: NALTREXONE HCL 4.5 MG PO SCH (21:00)
[2024-09-23] MEDS ORDERED: Non-Formulary Medication 1 Each (Melatonin [Melatonin] 5 MG Tablet) PO SCH (21:00)
[2024-09-23] MEDS: Tamsulosin 0.4 MG Cap.ER PO SCH (21:51)
[2024-09-24] MEDS ORDERED: oxyCODONE 5 MG Tab PO ONE (07:46)
[2024-09-24 12:22] VITALS: BP 129/74; PULSE 85
== END 2024-09-24 12:02 | disposition home health service (06) | DRG 42 ==
LOC: JD.ED 02:07 → JD.MS 04:19
PROVIDERS: ADMIT Family Medicine; ATTEND Internal Medicine
PROC: 0JQ00ZZ Repair Scalp Subcutaneous Tissue and Fascia, Open Approach (ICD-10-PCS; principal; 2024-09-22)
DX: S06.5X0A Traumatic subdural hemorrhage without loss of consciousness, initial encounter (principal); S01.01XA Laceration without foreign body of scalp, initial encounter; I10 Essential (primary) hypertension; E86.0 Dehydration; I25.10 Atherosclerotic heart disease of native coronary artery without angina pectoris; I11.9 Hypertensive heart disease without heart failure; R40.2412 Glasgow coma scale score 13-15, at arrival to emergency department; F41.9 Anxiety disorder, unspecified; W01.198A Fall on same level from slipping, tripping and stumbling with subsequent striking against other object, initial encounter; I25.2 Old myocardial infarction; G47.30 Sleep apnea, unspecified; H54.7 Unspecified visual loss; I48.91 Unspecified atrial fibrillation; E78.00 Pure hypercholesterolemia, unspecified; N40.0 Benign prostatic hyperplasia without lower urinary tract symptoms; N20.0 Calculus of kidney; F32.A Depression, unspecified; E11.9 Type 2 diabetes mellitus without complications; Z90.49 Acquired absence of other specified parts of digestive tract; Z86.73 Personal history of transient ischemic attack (TIA), and cerebral infarction without residual deficits; Z86.79 Personal history of other diseases of the circulatory system; Z79.899 Other long term (current) drug therapy; Z85.46 Personal history of malignant neoplasm of prostate; Z95.5 Presence of coronary angioplasty implant and graft; Z95.2 Presence of prosthetic heart valve
CPT/HCPCS: 12001; 36415; 70450; 72125; 80053; 83735; 84484; 85025; 99285; J2003 ×2; 12002; 80306; 81003; 95992-GP; 96374; 97110-GP; 97116-GP; 97161-GP; 97530-GP; A9270-GY; J1920; J2270; J7030